=== PATIENT | female | born 1945 | race Caucasian/White ===

== ENCOUNTER 2017-08-24 11:14 | Emergency (ER) | payer MEDICARE ==
[2017-08-24 11:30] VITALS: BP 110/59
[2017-08-24] MEDS ORDERED: DOXYcycline CAP(*) 100 MG PO ONE (11:35)
--- NOTE | 2017-08-24 11:35 | UC ---
Abdominal Pain Female HPI - HPI Summary HPI Summary: 72 YEAR OLD FEMALE PRESENTS WITH COMPLAINS OF DIARRHEA AND TICK BITE ON HER BACK. - History of Current Complaint Chief Complaint: UCGI Stated Complaint: DIARRHEA,NAUSEA Time Seen by Provider: 08/24/17 11:32 Hx Obtained From: Patient Onset/Duration: Sudden Onset Severity Initially: Moderate Severity Currently: Moderate Pain Scale Used: 0-10 Numeric - 0 Allergies/Adverse Reactions: Allergies Allergy/AdvReac Type Severity Reaction Status Date / Time Amoxicillin Allergy See Comment Verified 08/24/17 11:21 Home Medications: Home Medications Empagliflozin [Jardiance] 10 mg DAILY 08/24/17 [History Confirmed 08/24/17] Enalapril TAB* [Vasotec TAB*] 20 mg DAILY 08/24/17 [History Confirmed 08/24/17] Hydrochlorothiazide TAB* [Hydrodiuril TAB*] 25 mg PO DAILY 08/24/17 [History Confirmed 08/24/17] Linagliptin (NF) [Tradjenta (NF)] 5 mg DAILY 08/24/17 [History Confirmed ] Simvastatin [Zocor 40 MG (NF)] 40 mg PO QPM 08/24/17 [History Confirmed 08/24/17 ] glipiZIDE TAB* [Glucotrol TAB*] 10 mg BID 08/24/17 [History Confirmed 08/24/17] metFORMIN* [Glucophage 1000 MG TAB *] 1,000 mg BID 08/24/17 [History Confirmed 08/24/17] PMH/Surg Hx/FS Hx/Imm Hx Previously Healthy: Yes - Surgical History Surgical History: Yes Surgery Procedure, Year, and Place: - Family History Known Family History: Positive: None - Social History Alcohol Use: None Substance Use Type: None Smoking Status (MU): Never Smoked Tobacco - Immunization History Most Recent Influenza Vaccination: not yet 2017 Review of Systems Skin: Rash Eyes: Negative ENT: Negative Respiratory: Negative Cardiovascular: Negative Gastrointestinal: Vomiting, Nausea Genitourinary: Negative Motor: Negative Neurovascular: Negative Musculoskeletal: Negative Neurological: Negative Psychological: Negative All Other Systems Reviewed And Are Negative: Yes Physical Exam Triage Information Reviewed: Yes Appearance: Well-Appearing Vital Signs: Initial Vital Signs Temp 36.1 C 08/24/17 11:24 Pulse 71 08/24/17 11:24 Resp 16 08/24/17 11:24 BP 110/59 08/24/17 11:24 Pulse Ox 99 08/24/17 11:24 Eye Exam: Normal ENT Exam: Normal Dental Exam: Normal Neck exam: Normal Neck: Positive: 1 Respiratory Exam: Normal Cardiovascular Exam: Normal Abdominal Exam: Normal Musculoskeletal Exam: Normal Neurological Exam: Normal Psychological Exam: Normal Skin: Positive: rashes Abd Pain Female Course/Dx - Differential Dx/Diagnosis Provider Diagnoses: TICK BITE. NAUSEA. VOMITTING Discharge - Discharge Plan Condition: Stable Disposition: HOME Patient Education Materials: Lyme Disease (ED), Tick Bite (ED) Referrals: Stella BUTLER,Donavon Hall [Primary Care Provider] -
[2017-08-24 18:36] LABS: Hematocrit 39 % (35-47); Hemoglobin 14.1 g/dl (12.0-16.0); Mean Corpuscular HGB Conc 36 g/dl (31-36); Mean Corpuscular Hemoglobin 31 pg (27-31); Mean Corpuscular Volume 86 fL (80-97); Mean Platelet Volume 8 um3 (7.4-10.4); Red Cell Distribution Width 14 % (10.5-15); White Blood Count 5.5 10^3/ul (3.5-10.8)
[2017-08-24 18:39] LABS: Albumin 4.2 g/dL (3.2-5.2); BUN/Creatinine Ratio 18.6 (8-20); Calcium 9.4 mg/dL (8.6-10.3); EGFR Non-African American 64.5 (>60); Globulin 2.5 g/dL (2-4); Potassium 3.8 mmol/L (3.5-5.0); Total Bilirubin 0.5 mg/dL (0.2-1.0); Total Protein 6.7 g/dL (6.4-8.9)
== END 2017-08-24 11:56 | disposition home or self-care (01) ==
LOC: UCCORT 11:14
DX: T14.8XXA Other injury of unspecified body region, initial encounter (principal); R11.2 Nausea with vomiting, unspecified; W57.XXXA Bitten or stung by nonvenomous insect and other nonvenomous arthropods, initial encounter; Z88.1 Allergy status to other antibiotic agents
CPT/HCPCS: 36415; 80053; 85025; 86618; 99212; A9270-GY; G0463

== ENCOUNTER 2018-07-02 08:21 | Emergency (ER) | payer MEDICARE ==
[2018-07-02 08:41] VITALS: BP 148/61
--- NOTE | 2018-07-02 09:15 | UC ---
Skin Complaint HPI - HPI Summary HPI Summary: wound left 4th toe x 1 day tried to remove a callus from the left 4th toe yesterday , the area started to bleed bleeding stopped by applying pressure , here to have it checked - History of Current Complaint Chief Complaint: UCSkin Time Seen by Provider: 07/02/18 08:51 Stated Complaint: 4TH TOE CONCERN - LEFT FOOT Hx Obtained From: Patient Onset/Duration: Sudden Onset, Lasting Days - 1, Still Present Timing: Constant Onset Severity: Moderate Current Severity: Moderate Pain Intensity: 0 Pain Scale Used: 0-10 Numeric Location: Foot (Left) - 4th toe Character: Swelling, Pain, Redness, Raised, Painful Aggravating Factor(s): Touch Alleviating Factor(s): Nothing Associated Signs & Symptoms: Positive: Tenderness - Allergy/Home Medications Allergies/Adverse Reactions: Allergies Allergy/AdvReac Type Severity Reaction Status Date / Time amoxicillin Allergy See Comment Verified 07/02/18 08:35 Home Medications: Home Medications Aspirin EC TAB* [Ecotrin EC Low Dose 81 MG*] 81 mg PO BEDTIME 07/02/18 [History Confirmed 07/02/18] Cholecalciferol TAB* [Vitamin D TAB*] 1,000 unit PO DAILY 07/02/18 [History Confirmed 07/02/18] Vitamin THERAPEUTIC TAB* [Theragran TAB*] 1 tab PO DAILY 07/02/18 [History Confirmed 07/02/18] Review of Systems Constitutional: Negative Eyes: Negative ENT: Negative Respiratory: Negative Is Patient Immunocompromised?: No All Other Systems Reviewed And Are Negative: Yes PMH/Surg Hx/FS Hx/Imm Hx Endocrine History: Diabetes Cardiovascular History: Hypertension Other History Of: Hepatitis B - Surgical History Surgical History: Yes Surgery Procedure, Year, and Place: , [address] [place] [address] - Family History Known Family History: Positive: Hypertension, Diabetes - Social History Alcohol Use: None Substance Use Type: None Smoking Status (MU): Former Smoker Length of Time of Smoking/Using Tobacco: 1 PPD x ~25 Years When Did the Patient Quit Smoking/Using Tobacco: ~1982 - Immunization History Most Recent Influenza Vaccination: not yet 2016 Most Recent Tetanus Shot: "It's been within the last ten years, I'm sure." Physical Exam Triage Information Reviewed: Yes Appearance: Well-Appearing, No Pain Distress, Well-Nourished Vital Signs: Initial Vital Signs Temp 97.9 F 07/02/18 08:33 Pulse 77 07/02/18 08:33 Resp 15 07/02/18 08:33 BP 148/61 07/02/18 08:33 Pulse Ox 99 07/02/18 08:33 Vital Signs Reviewed: Yes Eye Exam: Normal Eyes: Positive: Conjunctiva Clear ENT: Positive: Normal ENT inspection, Hearing grossly normal, Pharynx normal Neck: Positive: Supple, Nontender, No Lymphadenopathy Respiratory: Positive: Chest non-tender, Lungs clear, Normal breath sounds Cardiovascular: Positive: RRR, No Murmur, Pulses Normal Skin: Positive: Other - callus left 4th toe , mild erythema, no bleeding, no swelling the callus was removed using a forcep Course/Dx - Diagnoses Provider Diagnoses: callus left foot Discharge - Sign-Out/Discharge Documenting (check all that apply): Patient Departure - Discharge Plan Condition: Stable Disposition: HOME Patient Education Materials: Foot Care for People with Diabetes (ED) Referrals: Stella BUTLER,Donavon Hall [Primary Care Provider] - If Needed - Billing Disposition and Condition Condition: STABLE Disposition: Home
== END 2018-07-02 09:04 | disposition home or self-care (01) ==
LOC: UCCORT 08:21
DX: L84 Corns and callosities (principal); Z88.0 Allergy status to penicillin; E11.9 Type 2 diabetes mellitus without complications; I10 Essential (primary) hypertension; Z87.891 Personal history of nicotine dependence
CPT/HCPCS: 99212; G0463